=== PATIENT | male | born 1980 | race Caucasian/White ===

== ENCOUNTER → 2017-02-20 | Outpatient (CLI) | payer BC ==
[2017-02-20 15:06] LABS: CHLORIDE,CL 107 mmol/L (98-110); SODIUM,NA 139 mmol/L (136-146)
== END | disposition home or self-care (01) ==
LOC: MW.CHIM 13:59
PROVIDERS: ATTEND Internal Medicine
DX: E11.9 Type 2 diabetes mellitus without complications (principal)
CPT/HCPCS: 36415; 80053; 83036

== ENCOUNTER 2020-04-20 21:41 | Emergency (ER) | payer BC ==
--- NOTE | 2020-04-20 22:18 | CR ---
Left wrist: 3 views of the left wrist were obtained. Comparison: No prior wrist exam. Joint spaces are preserved. No fracture, dislocation or other bony abnormality is seen. Metallic density is seen within a distal finger presumably due to old trauma. Impression: 1. Metallic density within the distal finger. This presumably represents old trauma. 2. Left wrist exam is otherwise unremarkable. Diagnostic code #2 This report was dictated in MDT
--- NOTE | 2020-04-20 22:26 | EDM.PDOC ---
ED HPI GENERAL MEDICAL PROBLEM - General Chief Complaint: Upper Extremity Injury/Pain Stated Complaint: LEFT WRIST INJURY Time Seen by Provider: 04/20/20 21:49 Source of Information: Reports: Patient History Limitations: Reports: No Limitations - History of Present Illness INITIAL COMMENTS - FREE TEXT/NARRATIVE: 39-year-old male with past medical history of diabetes mellitus presenting with left wrist pain. Several hours ago, the patient was at work when he stumbled and fell onto the ground, an aluminum ladder fell onto his left wrist. He did not strike his head or neck or lose consciousness. He arrives complaining of mild pain to the distal aspect of the left radius. Reports full range of motion of the left wrist, denies numbness or tingling to the left hand. Denies any wounds or bleeding or any other injuries or concerns. No self treatment prior to arrival, no other complaints. left wrist Pain Score (Numeric/FACES): 3 - Related Data Allergies Allergy/AdvReac Type Severity Reaction Status Date / Time No Known Allergies Allergy Verified 04/20/20 22:08 Home Meds: Home Meds Empagliflozin [Jardiance] 04/20/20 [History] Non-Formulary Medication [NF Drug] 1 each INJECT WEEKLY 04/20/20 [History] metFORMIN [Glucophage] mg PO 04/20/20 [History] Past Medical History Endocrine/Metabolic History: Reports: Diabetes, Type II - Infectious Disease History Infectious Disease History: Reports: Chicken Pox Social & Family History - Family History Family Medical History: Noncontributory - Tobacco Use Smoking Status *Q: Never Smoker - Caffeine Use Caffeine Use: Reports: Energy Drinks - Recreational Drug Use Recreational Drug Use: No Review of Systems - Review of Systems Review Of Systems: See Below Musculoskeletal: Reports: Arm Pain. Denies: Shoulder Pain, Hand Pain Skin: Denies: Wound Neurological: Denies: Numbness, Tingling ED EXAM, GENERAL - Physical Exam Exam: See Below Free Text/Narrative:: Vital signs reviewed. Nursing notes reviewed. Constitutional: Awake, alert, non-distressed. Head: Superficial scab and dried blood at the center of the forehead, this was not due to today's injury Eyes: EOMI, conjunctiva normal, no discharge, no scleral icterus. Cardiovascular: 2+ left radial pulse, capillary refill less than 2 seconds. Pulmonary: normal work of breathing, no accessory muscle use. Musculoskeletal: No deformities. Mild tenderness to palpation of the left distal radius. Full active and passive range of motion of the left elbow and left wrist. No tenderness to palpation of the left anatomic snuffbox. 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 Integumentary: Appropriate color for ethnicity, warm, dry, no pallor or jaundice, no rash. Neurologic: Alert, answering questions appropriately, normal speech, no facial droop, moving all extremities well. Sensation intact to light touch in the left hand. Psychiatric: Appropriate mood and affect, normal thought process. Course - Vital Signs Text/Narrative:: Patient hemodynamically stable, afebrile, well-appearing, looks nontoxic. Differential diagnosis includes but is not limited to: Fracture, dislocation, soft tissue injury, vascular injury, nerve injury, and many others. Neurovascularly intact in the left upper extremity. Low suspicion for fracture or dislocation given exam. Normal range of motion of the left wrist and elbow. Exam not consistent with scaphoid fracture. X-rays demonstrated an old radiodense object in the fingertip, patient states this is due to a pre-existing injury. X-rays otherwise did not demonstrate a bony injury. Suspect wrist sprain. No evidence of fracture or dislocation. Will be placed in a removable left wrist splint for wrist sprain duration 1 month as needed, recommended [id number] Tylenol and Motrin for pain. Primary care follow-up. Plan: Patient is stable to discharge home with outpatient primary care follow- up. Strict emergency department return precautions were provided, patient indicated understanding. All questions were answered prior to departure. Discharged in good condition. Last Recorded V/S: Last Vital Signs Temp 36.4 C 04/20/20 22:51 Pulse 90 04/20/20 22:51 Resp 17 04/20/20 22:51 BP 137/83 04/20/20 22:51 Pulse Ox 95 04/20/20 22:51 Departure - Departure Time of Disposition: 22:29 Disposition: Home, Self-Care 01 Condition: Good Clinical Impression: Sprain of left wrist Qualifiers: Encounter type: initial encounter Qualified Code(s): S63.502A - Unspecified sprain of left wrist, initial encounter - Discharge Information *PRESCRIPTION DRUG MONITORING PROGRAM REVIEWED*: Not Applicable *COPY OF PRESCRIPTION DRUG MONITORING REPORT IN PATIENT COLLIN: Not Applicable Instructions: Wrist Sprain, Adult Referrals: Raza Duque MD [Primary Care Provider] - 1 Week (Follow-up as needed.) Forms: ED Department Discharge Additional Instructions: Thank you for choosing the [facility] emergency department in [place] for your medical needs today. It was a pleasure caring for you. You were seen in the emergency department for left wrist injury. Your x-rays did not show a broken bone or dislocation. You have likely sprained your wrist. You can take [id number] Tylenol or Motrin as needed for pain. You will be given a wrist brace. Follow-up with your doctor in the next week or so if your pain does not improve and return to the ER if it worsens. Please return the emergency department immediately if your symptoms worsen or if you feel worse. The following information is given to patients seen in the emergency department who are being discharged. This information is to outline your options for follow-up care. We provide all patients seen in our emergency department with a follow-up referral. The need for follow-up, as well as the timing and circumstances, are variable depending upon the specifics of your emergency department visit. If you don't have a primary care physician on staff, we will provide you with a referral. We always advise you to contact your personal physician following an emergency department visit to inform them of the circumstance of the visit and for follow-up with them and/or the need for any referrals to a consulting specialist. The emergency department will also refer you to a specialist when appropriate. This referral assures that you have the opportunity for follow-up care with a specialist. All of these measure are taken in an effort to provide you with optimal care, which includes your follow-up. Under all circumstances we always encourage you to contact your private physician who remains a resource for coordinating your care. When calling for follow-up care, please make the office aware that this follow-up is from your recent emergency room visit. If for any reason you are refused follow-up, please contact the [facility] Emergency Department at and asked to speak to the emergency department charge nurse. If you do not have a primary care physician that is caring for you, you can contact these clinics below to set up an appointment to establish care: [facility] - [facility] [address] [place] [id number] [facility] [address] [place] [id number] Sepsis Event Note (ED) - Evaluation Sepsis Screening Result: No Definite Risk - Focused Exam Vital Signs: Vital Signs Temp Pulse Resp BP Pulse Ox 04/20/20 22:51 36.4 C 90 17 137/83 95 04/20/20 22:10 36.3 C 97 17 158/80 H 100
== END 2020-04-20 22:51 | disposition home or self-care (01) ==
LOC: MW.ED 21:41
DX: S63.502A Unspecified sprain of left wrist, initial encounter (principal); E11.9 Type 2 diabetes mellitus without complications; Z79.84 Long term (current) use of oral hypoglycemic drugs; W20.8XXA Other cause of strike by thrown, projected or falling object, initial encounter; Y92.89 Other specified places as the place of occurrence of the external cause; Y99.0 Civilian activity done for income or pay
CPT/HCPCS: 73110-26-LT; 73110-LT; 99283-25